=== PATIENT | male | born 1960 | race Caucasian/White ===

== ENCOUNTER → 2016-11-13 | Outpatient (CLI) | payer OTHER ==
[2016-11-13 18:42] LABS: ALT/SGPT 44 U/L (12-78); BLOOD UREA NITROGEN 12 mg/dl (7-18); BUN/CREATININE RATIO 13.7 (10-20); CALCIUM 9.6 mg/dl (8.5-10.1); CARBON DIOXIDE 28 mmol/L (21-32); CHLORIDE 99 mmol/L (98-107); CHOLESTEROL 200 mg/dl (0-200); CREATININE 0.84 mg/dl (0.60-1.40); GLUCOSE 144 mg/dl (70-99); POTASSIUM 3.1 mmol/L (3.5-5.1); SODIUM 134 mmol/L (136-145)
[2016-11-13 18:51] LABS: ALKALINE PHOSPHATASE 72 U/L (45-117); AST/SGOT 20 U/L (15-37); HDL CHOLESTEROL 50 mg/dl; LDL CHOLESTEROL CALCULATED 115 mg/dl; TRIGLYCERIDES 174 mg/dl (0-150); VERY LOW DENSITY LIPOPROT CALC 35 mg/dl
== END | disposition home or self-care (01) ==
LOC: C.LABSPEC 17:43
PROVIDERS: ATTEND Family Medicine
DX: Z00.00 Encounter for general adult medical examination without abnormal findings (principal); I10 Essential (primary) hypertension; E78.2 Mixed hyperlipidemia

== ENCOUNTER 2022-01-24 08:13 | Inpatient (IN) ==
--- NOTE | 2021-12-27 15:37 | PAT Medication Instructions ---
Medication Instructions Date of Service December 27, 2021 Home Medications amlodipine 5 mg tablet 5 mg PO QAM atenolol 100 mg-chlorthalidone 25 mg tablet 1 tab PO QAM duloxetine 30 mg capsule,delayed release 30 mg PO QAM empagliflozin 10 mg tablet (Jardiance) 10 mg PO QAM gabapentin 100 mg capsule 100 mg PO TID metformin 500 mg tablet 500 mg PO BID multivitamin 1 tab PO QAM pravastatin 80 mg tablet 40 mg PO HS DO NOT take the morning of surgery metformin 500 mg tablet 500 mg PO BID multivitamin 1 tab PO QAM Take morning of surgery With a small sip of water, OTHERWISE NOTHING TO EAT OR DRINK AFTER MIDNIGHT: amlodipine 5 mg tablet 5 mg PO QAM atenolol 100 mg-chlorthalidone 25 mg tablet 1 tab PO QAM duloxetine 30 mg capsule,delayed release 30 mg PO QAM gabapentin 100 mg capsule 100 mg PO TID Take evening before surgery gabapentin 100 mg capsule 100 mg PO TID metformin 500 mg tablet 500 mg PO BID pravastatin 80 mg tablet 40 mg PO HS STOP taking 3 days before surgery empagliflozin 10 mg tablet (Jardiance) 10 mg PO QAM Other Notes If you have any questions please call us at [phone] or [phone] or [phone] or [phone]
--- NOTE | 2022-01-04 13:23 | Anesthesiology Consultation ---
Date of Service January 04, 2022 Assessment & Plan (1) Encounter for pre-operative examination: Plan - check BSG am DOS. Chart Review Chart Review: Acceptable Risk for Surgery and Patient NOT seen in Pre Admission Testing Teaching & Discussion Pre-Anesthesia Teaching/Discussion Notes: Instructed NPO after midnight before surgery, except medications with 15 cc of water. Medication instructions provided according to the PAT guidelines. History Surgery Operation Date: 01/24/22 07:45 Proposed Procedures p L4-L5 Decompression and Fusion, Spinal Cord Monitoring - Edil Phipps DO Height/Weight Height: 6 ft 1 in Weight: 120.202 kg Allergies Allergy/AdvReac Type Severity Reaction Status Date / Time No Known Allergies Allergy Verified 12/27/21 12:47 Medications Home Medications Medication Instructions Recorded Confirmed Last Taken amlodipine 5 mg tablet 5 mg PO QAM 12/27/21 12/27/21 Unknown atenolol 100 mg-chlorthalidone 25 1 tab PO QAM 12/27/21 12/27/21 Unknown mg tablet duloxetine 30 mg capsule,delayed 30 mg PO QAM 12/27/21 12/27/21 Unknown release empagliflozin 10 mg tablet 10 mg PO QAM 12/27/21 12/27/21 Unknown (Jardiance) gabapentin 100 mg capsule 100 mg PO TID 12/27/21 12/27/21 Unknown metformin 500 mg tablet 500 mg PO BID 12/27/21 12/27/21 Unknown multivitamin 1 tab PO QAM 12/27/21 12/27/21 Unknown pravastatin 80 mg tablet 40 mg PO HS 12/27/21 12/27/21 Unknown Past Medical History Medical History (Updated 01/04/22 @ 13:32 by Whitney Jolly PA-C) Chronic back pain Diabetes mellitus, type 2 NIDDM GERD (gastroesophageal reflux disease) rare Hyperlipidemia Hypertension controlled, stable per pt Neuropathy in bilat legs Patient denies h/o stroke, seizures, heart attack, heart failure, blood clots or blood transfusions. Exercise / Class Metabolic Activity II 4-5 Yardwork/Stairs/Walk up hill (denies CP or SOB with 1 FOS) Past Family History Family History Other No family history of adverse response to anesthesia Past Surgical History Surgical History History of tooth extraction Past Anesthesia History No Hx of Anesthesia Complications and No Family Hx of Anesthesia Complications History of PONV No Hx of PONV and No Hx of Motion Sickness Social History Smoking Status: Former smoker Do You Dip or Chew Tobacco: No Smoking End Date: quit 7yrs ago Hx Alcohol Use: Yes alcohol intake frequency: holidays/special occasions only Hx Substance Use: No substance use type: does not use Review of Systems Snoring, denies witnessed apneas. Patient denies chest pain, shortness of breath, dyspnea on exertion, fever, chills, cough, wheezing, or palpitations. Physical Exam Vital Signs Vitals BP 145/76 P 52 TEMP 97.5 SP02 97% on RA RESP 18 Physical Full cervical extension range of motion without pain TMD < 3 finger breadths Mallampati Score 2 Dentition: front upper loose teeth; denies chipped teeth, caps/crowns, implants or bridges Lungs: normal respiratory effort. Clear throughout to auscultation, no adventitious breath sounds Cardiac: regular rate and rhythm, no murmurs noted Carotid arteries: negative bruit bilat Lab Results Anesthesia Preop Results Results Anesthesia Widget: WBC 7.64 K/ul (4.8-10.8) 01/04/22 Hgb 15.6 g/dl (14.0-18.0) 01/04/22 Hct 46.1 % (40.1-51.0) 01/04/22 Plt 212 K/uL (130-400) 01/04/22 Na 140 mmol/L (136-145) 01/04/22 K 3.6 mmol/L (3.5-5.1) 01/04/22 Cl 100 mmol/L (98-107) 01/04/22 CO2 33 mmol/L (21-32) H 01/04/22 BUN 12 mg/dl (6-23) 01/04/22 Creat 0.83 mg/dl (0.6-1.4) 01/04/22 Glucose Level 172 mg/dl (70-99(Fasting)) H 01/04/22 PT 10.6 Seconds (9.0-12.0) 01/04/22 PTT 26.5 Seconds (21.0-31.0) 01/04/22 INR 1.0 (0.9-1.1) 01/04/22 HA1c 7.1 % (4.5-5.6) H 01/04/22 Urine Color Yellow 01/04/22 Urine Appearance Clear (Clear) 01/04/22 Urine pH 7.0 (4.5-7.5) 01/04/22 Urine Specific [place] 1.036 (1.000-1.030) H 01/04/22 Urine Protein Negative (Negative) 01/04/22 Urine Glucose (UA) 3+ (Negative) H 01/04/22 Urine Ketones Negative (Negative) 01/04/22 Urine Blood Negative (Negative) 01/04/22 Urine Nitrite Negative (Negative) 01/04/22 Urine Bilirubin Negative (Negative) 01/04/22 Urine Urobilinogen Negative (Negative) 01/04/22 Urine Leukocyte Esterase Negative (Negative) 01/04/22 Blood Type A Positive 01/04/22 Antibody Screen NEGATIVE 01/04/22 Testing Electrocardiogram Date: 01/04/22 Sinus bradycardia, rate 51 bpm Left axis deviation Chest X-Ray Date: 01/04/22 Cardiomediastinal and hilar silhouettes are within normal limits. No pneumothorax, pleural effusion, airspace consolidation or overt pulmonary edema. The bones of the chest appear grossly intact. IMPRESSION: No acute process. COVID-19 Risk Screen Screening Information COVID-19 Screen Date: 01/04/22 Exposure 21 Days Family/Household +COVID Last 21 Days: No Exposure 10 Days Any COVID Exposure Last 10 Days: No Symptoms Last 10 Days Experienced COVID Sx Last 10 Days: No + COVID 0-90 Days COVID + in Last 0-90 Days: No
[~2022-01-24 08:13] MED LIST: ACETAMINOPHEN 500 MG TAB PO SCH; CeleBREX 200 MG CAP PO SCH; GABAPENTIN 600 MG DOSE PO SCH; LR 15ML/HR IV SCH
[2022-01-24] MEDS ORDERED: fentaNYL citrate 100 MCG/2 ML VIAL ONE ×2 (08:48→12:14)
[2022-01-24] MEDS ORDERED: MIDAZOLAM HCL 1 MG/ML 2ML VIAL ONE (08:48)
[2022-01-24] MEDS ORDERED: PROPOFOL IV EMULSION 10 MG/ML 20 ML VIAL IV ONE ×2 (08:48→12:11)
[2022-01-24] MEDS ORDERED: LIDOCAINE 2% MPF LOCAL 5 ML VIAL INFIL ONE (08:48)
[2022-01-24] MEDS ORDERED: ROCURONIUM BROMIDE 10 MG/ML 5 ML VIAL IV ONE (08:48)
[2022-01-24] MEDS ORDERED: ONDANSETRON INJ 2 MG/ML 2 ML VIAL ONE (08:48)
[2022-01-24] MEDS ORDERED: DEXAMETHASONE SOD INJ 4 MG/ML VIAL ONE (08:48)
[2022-01-24] MEDS ORDERED: ePHEDrine sulfate 50 MG/ML AMP IV PRN (09:29)
[2022-01-24] MEDS ORDERED: PROMETHAZINE HCL 12.5 MG in SODIUM CHLORIDE 0.9% 50 ML IV PRN ×2 (09:29→14:28)
[2022-01-24] MEDS ORDERED: NALOXONE HCL 0.4 MG/1 ML VIAL/CARP IV PRN ×2 (09:29→14:28)
[2022-01-24] MEDS ORDERED: ONDANSETRON INJ 2 MG/ML 2 ML VIAL IV PRN ×2 (09:29→14:28)
[2022-01-24] MEDS ORDERED: ATROPINE SULFATE 0.1 MG/ML 10ML SYR IV PRN (09:29)
[2022-01-24] MEDS ORDERED: fentaNYL citrate 100 MCG/2 ML VIAL IV PRN (09:29)
[2022-01-24] MEDS ORDERED: HYDROmorphone INJ 1 MG/ML SYRINGE IV PRN ×2 (09:29→14:28)
[2022-01-24] MEDS ORDERED: FLUMAZENIL 0.1 MG/1 ML 10 ML VIAL IV PRN (09:29)
[2022-01-24] MEDS ORDERED: LABETALOL HCL IV 5 MG/ML 20ML IV PRN (09:29)
--- NOTE | 2022-01-24 09:48 | History & Physical Bridge Note ---
Date of Service January 24, 2022 History & Physical Bridge Note I have examined the patient, reviewed the History & Physical and in the interval since the performance of the History & Physical I have noted the following changes of clinical significance: no changes noted
--- NOTE | 2022-01-24 09:50 | History & Physical Report ---
Date of Service January 24, 2022 Assessment & Plan (1) Neurogenic claudication due to lumbar spinal stenosis: Plan: L4-L5 decompression and fusion possible L5-S1 History of Present Illness Chief Complaint: Back and bilateral leg pain Primary Care Provider: Estevan Zimmer DO This is a 61-year-old male who presents with current persistent back and bilateral leg pain. Failed extensive course of nonoperative care is here for surgical invention. Allergies Allergy/AdvReac Type Severity Reaction Status Date / Time No Known Allergies Allergy Verified 01/24/22 08:43 Home Medications Medication Instructions Recorded Confirmed Type amlodipine 5 mg tablet 5 mg PO QAM 12/27/21 01/24/22 History atenolol 100 mg-chlorthalidone 25 1 tab PO QAM 12/27/21 01/24/22 History mg tablet duloxetine 30 mg capsule,delayed 30 mg PO QAM 12/27/21 01/24/22 History release empagliflozin 10 mg tablet 10 mg PO QAM 12/27/21 01/24/22 History (Jardiance) gabapentin 100 mg capsule 100 mg PO TID 12/27/21 01/24/22 History metformin 500 mg tablet 500 mg PO BID 12/27/21 01/24/22 History multivitamin 1 tab PO QAM 12/27/21 01/24/22 History pravastatin 80 mg tablet 40 mg PO HS 12/27/21 01/24/22 History Past Med/Surg History Medical History (Updated 01/24/22 @ 09:49 by Edil Phipps DO) Chronic back pain Diabetes mellitus, type 2 NIDDM GERD (gastroesophageal reflux disease) rare Hyperlipidemia Hypertension controlled, stable per pt Neuropathy in bilat legs Surgical History History of tooth extraction Family History Other No family history of adverse response to anesthesia Social History Smoking Status: Former smoker Smoking End Date: quit 7yrs ago; Second Hand Exposure: No; Do You Dip or Chew Tobacco: No; Tobacco Cessation Education Requested by Patient: No Hx Alcohol Use: Yes Hx Substance Use: No Preferred Language: Greek Communication Ability: Effective Maori Liaison Adviser Required: No Beliefs That Will Affect Care: None Current Living Situation: Spouse Other Information That Helps Us Care for You: No Feels Safe at Home: Yes Safety Concerns: Feels Safe At This Time Assistive Devices: None Physical Exam Physical Exam: Patient is alert and oriented Heart regular in rhythm Lungs clear Results & Data Results & Data ([facility]) Vital Signs (Past 12 Hours) Vital Signs Temp Pulse Resp BP Pulse Ox O2 Del Method 01/24/22 08:36 36.9 C 52 L 18 149/84 H 97 Room Air
[2022-01-24] MEDS ORDERED: ceFAZolin 330 MG/ML 1 GM VIAL ONE (09:55)
[2022-01-24] MEDS ORDERED: BUPIVACAINE/EPINEPHRINE 0.25% 1:200,000 30 ML VIAL ONE (09:55)
[2022-01-24] MEDS ORDERED: GLYCOPYRROLATE 0.2 MG/ML VIAL ONE ×3 (10:39→11:35)
[2022-01-24] MEDS ORDERED: FLOSEAL HEMOSTATIC MATRIX 10ML TOP ONE (11:06)
[2022-01-24] MEDS ORDERED: NEOSTIGMINE METHYLSULFATE 1 MG/ML 10ML VIAL ONE (11:35)
--- NOTE | 2022-01-24 12:12 | Operative Report ---
Post Operative Report Pre & Post Diagnosis Operation Date: 01/24/22 10:05 Pre-Op Diagnosis: Spinal Stenosis, Lumbar Rgeion with Neurogenic Claudication Post-Op Diagnosis: Spinal Stenosis, Lumbar Rgeion with Neurogenic Claudication I identified the patient and participated in the time-out.: Yes Procedure Operation Date: 01/24/22 10:05 Actual Procedures #1 lumbar impression bilateral medial facetectomies and foraminotomies L3-L4, L4-5 and L5-S1. #2 posterior spinal fusion L4-5 L5-S1. #3 placement posterior instrumentation L4-S1. #4 interbody fusion L4-L5 L5-S1. #5 placement of Spira 15 x 26 mm cage at both L4-L5 and L5-S1. #6 placement locally harvested morselized autograft and posterior gutters. #7 placement I factor combined with V toss in the interbody space and posterior lateral gutters. Surgeon Edil Phipps, DO Franchise Development Manager Rosemary Foote Estimated Blood Loss 150 Findings See Below The patient is 6 foot 1 weighing over 119 kg with a BMI in excess of 34. Patient continues to contribute to significant technical difficulty required deeper retractors and longer instruments in order to perform his procedure. This at least 50% increased operative time. Specimens None Indications This is a 61-year-old male who presents with above-mentioned diagnosis after failed course of nonoperative care is here for surgical intervention. Description of Procedure Patient was met with identified informed consent obtained. Patient was then taken to the operative suite underwent a patient placed in a prone position on Trent table top Dmitri frame. All bony prominences well-padded eyes inspected to ensure no external pressure placed upon them. This point the lumbar spine was prepped and draped in normal sterile fashion. Sharp dissection with assistance of Bovie cautery from down to and exposing the lamina and transverse processes of L4-L5 L5-S1. From caudal cephalad fashion complete laminectomy L5 L4 partial laminectomy L3 was performed with bilateral facetectomies and foraminotomies addressing severe spinal stenosis. Please note I did extend the fusion L5-S1 as well as A discussion on the left with severe compression of the traversing S1 nerve roots. This extended out into the neuroforamen requiring total facetectomy and subsequent creation of iatrogenic instability is necessitating fusion. After decompression pedicle schedule placed in L4-5 S1 with the assistance of fluoroscopy appropriate sized corrine placed. By way the tr ansforaminal approach on the left complete discectomy L5-S1 was performed endplates curetted to subcortical bleeding bone and a 15 x 26 mm spiral cage with I factor tapped in position. Then proceeded to L4-L5 and again by way of a transforaminal approach and left complete discectomy was performed endplates curetted to subcortical and bone and again a 15 x 26 mm cage filled with I factor tapped in position. The rods then compressed locked into final position bilaterally. The transverse processes of L for L5 and S1 levels burred to subcortical bleeding bone bilaterally. I factor model V testing locally harvested morselized autograft was then placed in the posterior gutters. 15 round SIOBHAN drain inserted. The incision was then closed with 1 Vicryl the fascia 2-0 Vicryl subcutaneously and 4 Monocryl for final skin closure. Steri-Strips dressings placed. Patient waken taken to PACU in stable condition. Please note spinal cord monitoring was utilized at the procedure no changes noted. Lastly Rosemary Foote was present at the entire surgery and while the patient positioning complex portions of the surgery and final skin closure. I attest to the content of the Intraoperative Record and any orders documented therein. Any exceptions are noted below.
--- NOTE | 2022-01-24 13:04 | Fluoroscopy Report ---
FL lumbar spine 2-3V CLINICAL HISTORY: L4-L5 Decompression/Fusion TECHNIQUE: 2 views were obtained with the C-arm in the OR with the above procedure. Total fluoroscopy time was 24.9 seconds. Radiation dose was 23.14 mGy. Comparison: Comparison is made to MRI lumbar spine 06/23/2021 FINDINGS/IMPRESSION: Intraoperative images were obtained of L4-S1 decompression and fusion. Please correlate with intraoperative fluoroscopy and operative report. ACT 112: Negative or not required by law. Electronically signed by: Jaya Sharp M.D. 01/24/2022 1:03 PM
--- NOTE | 2022-01-24 13:10 | Anesthesiology Progress Note ---
Date of Service January 24, 2022 Anesthesia Post Procedure Vital Signs Vital Signs: Temp Pulse Pulse Resp BP Pulse Ox O2 Del Method 01/24/22 12:55 68 12 120/69 94 Nasal Cannula 01/24/22 12:45 65 12 131/67 95 Oxymask 01/24/22 12:35 71 12 126/67 96 Oxymask 01/24/22 12:26 36.6 C 65 12 142/72 H 96 Oxymask 01/24/22 08:36 36.9 C 52 L 18 149/84 H 97 Room Air O2 Flow Rate 01/24/22 12:55 3 01/24/22 12:45 10 01/24/22 12:35 10 01/24/22 12:26 10 01/24/22 08:36 Transfer of Care Handoff Completed per policy Notes Mental Status: alert / awake / arousable Patient Amnestic to Procedure: Yes Nausea / Vomiting: adequately controlled Pain: adequately controlled Airway Patency, RR, SpO2: stable & adequate BP & HR: stable & adequate Hydration State: stable & adequate Anesthetic Complications: no major complications apparent
[2022-01-24] MEDS ORDERED: ACETAMINOPHEN 1,000 MG/100 ML VIAL IV PRN (14:28)
[2022-01-24] MEDS ORDERED: LORazepam 0.5 MG TAB PO PRN (14:28)
[2022-01-24] MEDS ORDERED: ONDANSETRON 4 MG OD TAB PO PRN (14:28)
[2022-01-24] MEDS ORDERED: FAMOTIDINE 20 MG TAB PO PRN (14:28)
[2022-01-24] MEDS ORDERED: ALUMINUM/MAGNESIUM SUSP 30 ML UDC PO PRN (14:28)
[2022-01-24] MEDS ORDERED: HYDROmorphone INJ 0.5 MG/0.5 ML SYR IV PRN (14:28)
[2022-01-24] MEDS ORDERED: bisacodyL 10 MG SUPP PR PRN (14:28)
[2022-01-24] MEDS ORDERED: LORazepam 0.5 MG in SYRINGE 0.25 ML IV PRN (14:28)
[2022-01-24] MEDS ORDERED: DO NOT ADMINISTER PNEUMOCOCCAL VACCINE PRN (14:28)
[2022-01-24] MEDS ORDERED: DO NOT ADMINISTER FLU VACCINE PRN (14:28)
[2022-01-24] MEDS ORDERED: hydrOXYzine HCl 25 MG TAB PO PRN (14:28)
[2022-01-24] MEDS ORDERED: diphenhydrAMINE Capsule 25 MG CAP PO PRN (14:28)
[2022-01-24] MEDS ORDERED: SOD PHOSPHATE/SOD BIPHOSPHATE ENEMA 132 ML BTL PR PRN (14:28)
[2022-01-24] MEDS ORDERED: PHARMACY GLYCEMIC MGMT CONSULT PRN (14:28)
[2022-01-24] MEDS ORDERED: MAGNESIUM HYDROXIDE SUSP 30 ML UDC PO PRN (14:28)
[2022-01-24] MEDS ORDERED: METOCLOPRAMIDE HCL INJ 5 MG/ML 2 ML VIAL IV PRN (14:28)
[2022-01-24] MEDS ORDERED: GLUCOSE 10 TAB/TUBE PO PRN (15:00)
[2022-01-24] MEDS ORDERED: CARBOHYDRATES FOR HYPOGLYCEMIA PO PRN (15:00)
[2022-01-24] MEDS ORDERED: DEXTROSE 50% 50 ML SYRINGE IV PRN (15:00)
[2022-01-24] MEDS ORDERED: LANTUS PER UNIT CHARGE SQ SCH (15:00)
[2022-01-24] MEDS ORDERED: GLUCAGON FOR INJ 1 MG VIAL IM PRN (15:00)
[2022-01-24] MEDS ORDERED: GLUCOSE 40% GEL 15 GM TUBE PO PRN (15:00)
--- NOTE | 2022-01-24 15:00 | Pharmacy Report ---
Pharmacy Glycemic Short Note 2 - Date of Service January 24, 2022 - Glycemic Short BSG Results (Last 24 hours): 01/24/22 01/24/22 08:46 12:29 POC Glucose 134 H 149 H OUTPATIENT ANTIDIABETIC REGIMEN: * Metformin 500 mg PO BIDM * Jardiance 10 mg PO AM * HbA1c: 7.1% (01/04/22) ASSESSMENT: * 61 yo M admitted post-operatively following spinal surgery this morning with Dr. Phipps. Pharmacy has been consulted to assist with inpatient glycemic management. Patient is a type 2 diabetic on oral antidiabetic medications at home. * Received 4 mg of IV dexamethasone intra-operatively. Ordered 6 mg of IV dexamethasone daily x 3 days starting tomorrow morning. Ordered and tolerating a type 2 diabetic diet. * Pre-operative BSG 134 mg/dL. Post-operative BSG 149 mg/dL. Start Lantus based upon 0.3 units/kg (adjusted body weight) to cover steroids. Novolog started ACHS based on weight/stress of 3. Holding oral agents for now. PLAN FOR INPATIENT GLYCEMIC CONTROL: * Hold outpatient oral diabetes medications * Basal insulin * Lantus 30 units SC daily starting now x 4 doses (give with dexamethasone - hold if dexamethasone held/discontinued) * Bolus insulin * NovoLog per scale ACHS or Q6hrs while NPO * Goal Range: Low 110 mg/dL - High 140 mg/dL * Correction Factor: 15 mg/dL/unit * Nutritional / Prandial insulin per carb ratio of 1 unit per 5 grams CHO consumed
[2022-01-24] MEDS: traMADol HCL 50 MG TABLET PO PRN (15:33)
[2022-01-24] MEDS: GABAPENTIN 100 MG CAP PO SCH ×2 (15:39→20:37)
[2022-01-24] MEDS: SODIUM CHLORIDE 0.9% 1000ML 1,000 ML IV SCH ×2 (15:42→22:17)
--- NOTE | 2022-01-24 16:49 | Hospitalist Consultation ---
Date of Consultation January 24, 2022 Assessment & Plan (1) Neurogenic claudication due to lumbar spinal stenosis: POD#0 L4-L5, L5-S1 decompression and fusion by Dr. Phipps Activity and wound care orders as per ortho Pain control with bowel regimen PT/OT Monitor H/H for acute blood loss anemia and transfuse blood products PRN EBL 150 cc (2) Diabetes mellitus, type 2: Hgb A1c 7.1 12/2021 Glycemic pharmacy following (3) Hypertension: BP controlled, continue atenolol, chlorthalidone, amlodipine (4) Hyperlipidemia: Continue statin DVT prophylaxis TEDs/SCDs as per spine Ortho Thank you for this consultation. We will follow the patient with you during their hospital stay. You can reach a member of the [facility] Hospitalist Team 28/[address] [facility] Hospitalist role in [place] Text. Supervising Physician Co-Signing Physician Notes Pt is a 61 y/o M with hx of DMII, HTN, HLD, Lumbar spinal stenosis admitted for L4-S1 decompression and fusion. PE: NAD, obese pt Lungs: CTA, no wheezing or crackles Cardiac: Normal S1/S2, no murmur Abd: ND, NT, soft MSK: able to move b/l toes Psych: AAOx3, normal affect A/P: S/P L4-S1 Decompression: -POD # 0 - VSS - Pain management per ortho - PT/OT - Trend CBC and BMP DMII: -will hold oral meds -ISS Other chronic conditions: Plan as above Agree with A/P by ANGELINE Mckeon History of Present Illness Reason for Consultation: Postop medical management Requesting Physician: Dr. Phipps Attending Physician: Edil Phipps DO History of Present Illness 61-year-old male with PMH HTN, DM type II, dyslipidemia, and other problems listed below who is s/p L4-L5, L5-S1 decompression and fusion by Dr. Phipps. Postoperatively, the patient is doing well. He reports his pain is well controlled. He denies numbness, tingling, weakness to lower extremities. No chest pain or shortness of breath. Denies abdominal pain or nausea. No li ghtheadedness or dizziness. Meyer catheter is in place draining clear yellow urine. Allergies Allergy/AdvReac Type Severity Reaction Status Date / Time No Known Allergies Allergy Verified 01/24/22 08:43 Home Medications Medication Instructions Recorded Confirmed Type amlodipine 5 mg tablet 5 mg PO QAM 12/27/21 01/24/22 History atenolol 100 mg-chlorthalidone 25 1 tab PO QAM 12/27/21 01/24/22 History mg tablet duloxetine 30 mg capsule,delayed 30 mg PO QAM 12/27/21 01/24/22 History release empagliflozin 10 mg tablet 10 mg PO QAM 12/27/21 01/24/22 History (Jardiance) gabapentin 100 mg capsule 100 mg PO TID 12/27/21 01/24/22 History metformin 500 mg tablet 500 mg PO BID 12/27/21 01/24/22 History multivitamin 1 tab PO QAM 12/27/21 01/24/22 History pravastatin 80 mg tablet 40 mg PO HS 12/27/21 01/24/22 History Patient History Medical History Chronic back pain Diabetes mellitus, type 2 NIDDM GERD (gastroesophageal reflux disease) rare Hyperlipidemia Hypertension controlled, stable per pt Neuropathy in bilat legs Surgical History History of tooth extraction Family History Mother Diabetes Social History Smoking Status: Former smoker Smoking End Date: quit 7yrs ago; Second Hand Exposure: No; Do You Dip or Chew Tobacco: No; Tobacco Cessation Education Requested by Patient: No Hx Alcohol Use: Yes Hx Substance Use: No Preferred Language: Jordanian Communication Ability: Effective Machine Maintenance Repairer Required: No Beliefs That Will Affect Care: None Current Living Situation: Spouse Other Information That Helps Us Care for You: No Feels Safe at Home: Yes Safety Concerns: Feels Safe At This Time Assistive Devices: None Review of Systems Review of Systems: ROS per HPI, all other systems reviewed and negative Physical Exam Constitutional: WD/WN, vitals as above Eyes: PERRL, conjunctivae normal, anicteric sclerae ENMT: external ear and nose normal, oropharynx normal Respiratory: normal respiratory effort, lungs clear to auscultation Cardiovascular: Rate/Rhythm: regular rate and regular rhythm Vessels: normal peripheral pulses Extremities: no edema Gastrointestinal (Abdomen): normal bowel sounds, soft, nontender, no hepatosplenomegaly Musculoskeletal: S/p back surgery, pedal pushes and pulls strong bilaterally, drain in place draining bloody drainage Skin: no rashes, warm and dry Neurologic: PERRL, EOMI, accommodation nl, no face palsy, no dysarthria Psychiatric: A+Ox3, euthymic affect Results & Data Results & Data ([facility]) Vital Signs (Past 12 Hours) Vital Signs Temp Pulse Pulse Resp BP Pulse Ox O2 Del Method 01/24/22 16:27 36.5 C 57 L 18 155/75 H 95 Nasal Cannula 01/24/22 15:32 36.4 C L 68 18 144/79 H 94 Room Air 01/24/22 14:53 36.8 C 66 16 122/66 94 Nasal Cannula 01/24/22 14:28 36.8 C 60 16 133/69 90 Room Air 01/24/22 14:00 76 15 130/71 93 Nasal Cannula 01/24/22 13:30 64 13 134/62 94 Nasal Cannula 01/24/22 13:15 36.2 C L 76 12 115/72 94 Nasal Cannula 01/24/22 13:05 61 13 127/70 95 Nasal Cannula 01/24/22 12:55 68 12 120/69 94 Nasal Cannula 01/24/22 12:45 65 12 131/67 95 Oxymask 01/24/22 12:35 71 12 126/67 96 Oxymask 01/24/22 12:26 36.6 C 65 12 142/72 H 96 Oxymask 01/24/22 08:36 36.9 C 52 L 18 149/84 H 97 Room Air O2 Flow Rate 01/24/22 16:27 2 01/24/22 15:32 01/24/22 14:53 2 01/24/22 14:28 01/24/22 14:00 2 01/24/22 13:30 3 01/24/22 13:15 3 01/24/22 13:05 3 01/24/22 12:55 3 01/24/22 12:45 10 01/24/22 12:35 10 01/24/22 12:26 10 01/24/22 08:36
[2022-01-24] MEDS: ceFAZolin 2000MG 2,000 MG/15 ML SYR IV SCH (18:10)
[2022-01-24] MEDS: INSULIN ASPART PER UNIT SC SCH ×2 (18:10→20:34)
[2022-01-24] MEDS: metFORMIN HCL ER 500 MG TABCR PO SCH (18:20)
[2022-01-24] MEDS: DOCUSATE SODIUM/SENNA 50/8.6MG TAB PO SCH (20:37)
[2022-01-24] MEDS: PRAVASTATIN SOD 40 MG TAB PO SCH (20:37)
[2022-01-24] MEDS: ACETAMINOPHEN 500 MG TAB PO PRN (20:41)
[2022-01-25] MEDS: ceFAZolin 2000MG 2,000 MG/15 ML SYR IV SCH (01:54)
[2022-01-25] MEDS: traMADol HCL 50 MG TABLET PO PRN (01:54)
[2022-01-25] MEDS: oxyCODONE HCL IR 5 MG TAB (IMMEDIATE RELEASE) PO PRN ×3 (04:47→13:07)
[2022-01-25] MEDS: SODIUM CHLORIDE 0.9% 1000ML 1,000 ML IV SCH (05:02)
[2022-01-25] MEDS: POLYETHYLENE (MIRALAX) 17 GM PACK PO SCH ×4 (05:52→23:57)
[2022-01-25 07:06] LABS: Basophils # (auto) 0.01 K/uL (0-0.2); Basophils % (auto) 0.1 %; Eosinophils # (auto) 0.03 K/uL (0-0.50); Eosinophils % (auto) 0.2 %; Hematocrit (blood only) 40.4 % (40.1-51.0); Hemoglobin 13.3 g/dl (14.0-18.0); Immature Granulocytes # (auto) 0.05 K/uL (0.00-0.02); Immature Granulocytes % (auto) 0.4 %; Lymphocytes # (auto) 1.18 K/uL (1.2-3.4); Lymphocytes % (auto) 9.2 %; Mean Corpuscular Hemoglobin 29.8 pg (25.0-34.0); Mean Corpuscular Hgb Conc 32.9 g/dL (32.0-36.0); Mean Corpuscular Volume 90.6 fL (80.0-100.0); Mean Platelet Volume 10.5 fL (9.4-12.4); Monocytes # (auto) 1.08 K/uL (0.24-0.82); Monocytes % (auto) 8.4 %; Neutrophils # (auto) 10.46 K/uL (1.4-6.5); Neutrophils % (auto) 81.7 %; Platelet Count 182 K/uL (130-400); RDW Coefficient of Variation 13.1 % (11.5-14.5); RDW Standard Deviation 43.1 fL (36.4-46.3); Red Blood Count 4.46 M/uL (4.63-6.08); White Blood Count 12.81 K/ul (4.8-10.8)
[2022-01-25 07:26] LABS: Calcium 8.3 mg/dl (8.5-10.1); Creatinine Clr Calc Pharmacy 129.4 ml/min; Est GFR (African American) 110.8 ml/min; Est GFR (Non-African American) 95.6 ml/min; Potassium 3.7 mmol/L (3.5-5.1)
--- NOTE | 2022-01-25 08:33 | Orthopedic Progress Note ---
Date of Service January 25, 2022 Assessment & Plan (1) Neurogenic claudication due to lumbar spinal stenosis: Plan: Domenic is postop day 2 status post TLIF L4-5, L5-S1. We will start physical therapy today. Ambulate hallways. DVT prophylaxis in the form teds and SCDs. Continue with aggressive bowel regimen. Maintain SIOBHAN drain. Continue with pain control. Anticipate discharge home within the next 24 to 48 hours. Admission and Anticipated Discharge Date Admission Date: January 24, 2022 Lacey Sheth is postoperative day 1 status post TLIF L4-5, L5-S1. He had an uneventful evening. Leg pain has resolved. Back pain is controlled. SIOBHAN drain output last shift was 100 cc. H&H is morning are 13.3 and 40.4 respectively. Review of Systems Review of Systems: All systems reviewed & are unremarkable except as noted in HPI & below Physical Exam Physical Exam: He is lying in bed in no acute distress Alert and oriented x3 Lumbar dressing is clean dry intact with functioning SIOBHAN drain Strength intact bilateral lower extremity Calf soft nontender bilateral lower extremities Results & Data ([facility]) Vital Signs (Past 12 Hours) Vital Signs Temp Pulse Resp BP BP Pulse Ox O2 Del Method 01/25/22 07:28 36.6 C 67 20 154/71 H 94 Room Air 01/25/22 03:33 36.6 C 63 18 114/69 94 Room Air 01/24/22 22:27 36.9 C 64 20 128/66 93 Room Air
[2022-01-25] MEDS ORDERED: ATENOLOL CHLORTHALIDONE PO SCH (09:00)
[2022-01-25] MEDS ORDERED: EMPAGLIFLOZIN 10 MG TAB PO SCH (09:00)
[2022-01-25] MEDS: ACETAMINOPHEN 500 MG TAB PO PRN ×2 (09:06→17:01)
[2022-01-25] MEDS: MULTIVITAMIN TAB PO SCH (09:07)
[2022-01-25] MEDS: ATENOLOL 50 MG TABLET PO SCH (09:08)
[2022-01-25] MEDS: DULoxetine HCL 30 MG CAP PO SCH (09:09)
[2022-01-25] MEDS: CHLORTHALIDONE 25 MG TAB PO SCH (09:10)
[2022-01-25] MEDS: GABAPENTIN 100 MG CAP PO SCH ×3 (09:10→20:09)
[2022-01-25] MEDS: amLODIPine BESYLATE 5 MG TAB PO SCH (09:10)
[2022-01-25] MEDS: INSULIN ASPART PER UNIT SC SCH ×4 (09:18→21:04)
[2022-01-25] MEDS: dexAMETHasone 6 MG in SYRINGE 0 ML IV SCH (09:20)
[2022-01-25] MEDS: metFORMIN HCL ER 500 MG TABCR PO SCH ×2 (10:54→17:02)
--- NOTE | 2022-01-25 14:30 | Hospitalist Progress Note ---
Date of Service January 25, 2022 Assessment & Plan (1) Neurogenic claudication due to lumbar spinal stenosis: Plan: POD#1 L4-L5, L5-S1 decompression and fusion by Dr. Phipps Activity and wound care orders as per ortho Pain control with bowel regimen PT/OT Monitor H/H for acute blood loss anemia and transfuse blood products PRN EBL 150 cc Acute blood loss anemia Hemoglobin dropped to 13.3 from 15.6 and is contributed by minimal blood loss, surgery itself and dilution due to IV fluid Will monitor CBC and electrolytes Remains medically stable (2) Diabetes mellitus, type 2: Plan: Hgb A1c 7.1 12/2021 Glycemic pharmacy following (3) Hypertension: Plan: BP controlled, continue atenolol, chlorthalidone, amlodipine (4) Hyperlipidemia: Plan: Continue statin DVT prophylaxis TEDs/SCDs as per spine Ortho Thank you for this consultation. We will follow the patient with you during their hospital stay. You can reach a member of the [facility]ist Team 28/08 via the [facility] Hospitalist role in [employer]. Admission and Anticipated Discharge Date Admission Date: January 24, 2022 Subjective 01/25/2022 The patient was seen and examined in medical floor He has been stable following lumbar surgery Denies any other significant symptoms except back pain He has been ambulating in the room Review of Systems Review of Systems: All systems reviewed and are unremarkable except as noted below Physical Exam Physical Exam: Standing at the bedside without any acute discomfort Constitutional: well developed, well nourished and + obese; not ill appearing Eyes: PERRL, conjunctivae normal, anicteric sclerae ENMT: external ear and nose normal, oropharynx normal Neck: trachea midline, no thyromegaly Respiratory: no respiratory distress Auscultation: lungs clear to auscultation bilaterally Cardiovascular: Rate/Rhythm: regular rate and regular rhythm; not tachycardic Heart Sounds: normal S1 and normal S2; no murmur Extremities: no edema Gastrointestinal (Abdomen): Inspection/Auscultation: normal bowel sounds; abdomen not distended Percussion/Palpation: abdomen soft; abdomen nontender Musculoskeletal: Minimal back pain but no acute arthritis in any other joints Neurologic: Alert, awake and oriented x3. No focal sensory or motor deficit appreciated Psychiatric: A+Ox3, euthymic affect Lymphatic: no cervical or axillary lymphadenopathy Results & Data Results & Data ([place]) Vital Signs (Past 12 Hours) Vital Signs Temp Pulse Resp BP BP Pulse Ox O2 Del Method 01/25/22 07:28 36.6 C 67 20 154/71 H 94 Room Air 01/25/22 03:33 36.6 C 63 18 114/69 94 Room Air Laboratory Results Short CBC 01/25/22 Range/Units 06:20 WBC 12.81 H (4.8-10.8) K/ul Hgb 13.3 L (14.0-18.0) g/dl Hct 40.4 (40.1-51.0) % Plt Count 182 (130-400) K/uL BMP 01/25/22 06:20 Sodium 137 Potassium 3.7 Chloride 99 Carbon Dioxide 31 BUN 15 Creatinine 0.79 Glucose 144 H Calcium 8.3 L Medications Administered Current Inpatient Medications Acetaminophen (Acetaminophen 500 Mg Tab) 1,000 mg PO Q8H PRN PRN Reason: MILD Pain Scale 1,2,3 & Pre PT Stop: 02/23/22 14:27 Last Admin: 01/25/22 09:06 Dose: 1,000 mg Al Hydrox/Mg Hydrox/Simethicone (Aluminum/Magnesium Susp 30 Ml Udc) 30 ml PO Q6H PRN PRN Reason: Dyspepsia Stop: 02/23/22 14:27 Amlodipine Besylate (Amlodipine Besylate 5 Mg Tab) 5 mg PO [facility] Stop: 02/24/22 08:59 Last Admin: 01/25/22 09:10 Dose: 5 mg Atenolol (Atenolol 50 Mg Tablet) 100 mg PO [facility] Stop: 02/24/22 08:59 Last Admin: 01/25/22 09:08 Dose: 100 mg Bisacodyl (Bisacodyl 10 Mg Supp) [address] DAILY PRN PRN Reason: Constipation Stop: 02/23/22 14:27 Chlorthalidone (Ch[facility]orthalidone 25 Mg Tab) [facility] Stop: 02/24/22 08:59 Last Admin: 01/25/22 09:10 Dose: 25 mg Dextrose (Dextrose 50% 50 Ml Syringe) 25 - 50 ml IV UD PRN; Protocol PRN Reason: Hypoglycemia Protocol Stop: 02/23/22 14:59 Diphenhydramine HCl (Diphenhydramine Capsule 25 Mg Cap) 25 mg PO Q6H PRN PRN Reason: Allergic Rhinitis/Insomnia Stop: 02/23/22 14:27 Duloxetine HCl (Duloxetine Hcl 30 Mg Cap) 30 mg PO QAM [facility] Stop: 02/24/22 08:59 Last Admin: 01/25/22 09:09 Dose: 30 mg Famotidine (Famotidine 20 Mg Tab) 20 mg PO Q12H PRN PRN Reason: Dyspepsia Stop: 02/23/22 14:27 Gabapentin (Gabapentin 100 Mg Cap) 100 mg PO TID [facility] Stop: 02/23/22 14:44 Last Admin: 01/25/22 09:10 Dose: 100 mg Glucagon (Glucagon For Inj 1 Mg Vial) 1 mg IM UD PRN; Protocol PRN Reason: Hypoglycemia Protocol Stop: 02/23/22 14:59 Glucose (Glucose 40% Gel 15 Gm Tube) 15 - 30 gm PO UD PRN; Protocol PRN Reason: Hypoglycemia Protocol Stop: 02/23/22 14:59 Glucose (Glucose 10 Tab/Tube) 4 - 8 tab PO UD PRN; Protocol PRN Reason: Hypoglycemia Protocol Stop: 02/23/22 14:59 Hydromorphone HCl (Hydromorphone Inj 0.5 Mg/0.5 Ml Syr) 0.5 mg IV Q3H PRN PRN Reason: MODERATE Pain (Scale 4,5,6) & Pre PT Stop: 02/07/22 14:27 Hydromorphone HCl (Hydromorphone Inj 1 Mg/Ml Syringe) 1 mg IV Q3H PRN PRN Reason: SEVERE Pain (Scale 7,8,9,10) Stop: 02/07/22 14:27 Hydroxyzine HCl (Hydroxyzine Hcl 25 Mg Tab) 25 mg PO Q8H PRN PRN Reason: Anxiety Stop: 02/23/22 14:27 Promethazine HCl 12.5 mg/ (Sodium Chloride) 50.5 mls @ 202 mls/hr IV Q6H PRN PRN Reason: Nausea &/or Vomiting Stop: 02/23/22 14:27 Acetaminophen (Ofirmev) 1,000 mg in 100 mls @ 400 mls/hr IV Q8H PRN PRN Reason: Pain Rating 1-3 & Pre PT Stop: 01/25/22 14:30 Lorazepam 0.5 mg/ Syringe 0.5 mls @ 2 mls/min IV Q8H PRN PRN Reason: Sedation/Anxiety Stop: 02/23/22 14:27 Dexamethasone 6 mg/ Syringe 1.5 mls @ 1 mls/min IV DAILY [facility] Stop: 01/27/22 09:02 Last Admin: 01/25/22 09:20 Dose: 1 mls/min Influenza Virus Vaccine Quadrival (Do Not Administer Flu Vaccine) 1 each N/A PRN PRN PRN Reason: Notification Stop: 02/23/22 14:27 Insulin Aspart (Insulin Aspart Per Unit) 0 units SC ACHS [facility]; Protocol Stop: 02/23/22 16:29 Last Admin: 01/25/22 13:04 Dose: 9 units Lorazepam (Lorazepam 0.5 Mg Tab) 0.5 mg PO Q8H PRN PRN Reason: Sedation/Anxiety Stop: 02/23/22 14:27 Magnesium Hydroxide (Magnesium Hydroxide Susp 30 Ml Udc) 30 ml PO Q24H PRN PRN Reason: Constipation Stop: 02/23/22 14:27 Metformin HCl (Metformin Hcl Er 500 Mg Tabcr) 500 mg PO BIDM [facility]; Protocol Stop: 02/23/22 16:59 Last Admin: 01/25/22 10:54 Dose: 500 mg Metoclopramide HCl (Metoclopramide Hcl Inj 5 Mg/Ml 2 Ml Vial) 10 mg IV Q6H PRN PRN Reason: Nausea &/or Vomiting Stop: 02/23/22 14:27 Miscellaneous (Carbohydrates For Hypoglycemia ) 15 - 30 gm PO UD PRN PRN Reason: Hypoglycemia Treatment Stop: 02/23/22 14:59 Miscellaneous Information (Pharmacy Glycemic Mgmt Consult) 1 each N/A UD PRN PRN Reason: Consult Stop: 02/23/22 14:27 Multivitamins (Multivitamin Tab) 1 tab PO QAM [facility] Stop: 02/24/22 08:59 Last Admin: 01/25/22 09:07 Dose: 1 tab Naloxone HCl (Naloxone Hcl 0.4 Mg/1 Ml Vial/Carp) 0.1 mg IV Q5M PRN PRN Reason: Oversedation/Resp depression Stop: 02/23/22 14:27 Ondansetron HCl (Ondansetron Inj 2 Mg/Ml 2 Ml Vial) 4 mg IV Q6H PRN PRN Reason: Nausea &/or Vomiting Stop: 02/23/22 14:27 Ondansetron HCl (Ondansetron 4 Mg Od Tab) 4 mg PO Q6H PRN PRN Reason: Nausea Stop: 02/23/22 14:27 Oxycodone HCl (Oxycodone Hcl Ir 5 Mg Tab (Immediate Release)) 5 - 10 mg PO Q4H PRN PRN Reason: Pain & Pre PT Stop: 02/07/22 14:27 Last Admin: 01/25/22 13:07 Dose: 5 mg Pneumococcal Polyvalent Vaccine (Do Not Administer Pneumococcal Vaccine) 1 each N/A PRN PRN PRN Reason: Notification Stop: 02/23/22 14:27 Polyethylene Glycol (Polyethylene (Miralax) 17 Gm Pack) 17 gm PO Q6 [facility]AH[facility] Stop: 02/24/22 05:59 Last Admin: 01/25/22 12:50 Dose: 17 gm Pravastatin Sodium (Pravastatin Sod 40 Mg Tab) 40 mg PO HS SARAHY Stop: 02/23/22 20:59 Last Admin: 01/24/22 20:37 Dose: 40 mg Senna/Docusate Sodium (Docusate Sodium/Senna 50/8.6mg Tab) 2 tab PO HS SAARHY Stop: 02/23/22 20:59 Last Admin: 01/24/22 20:37 Dose: 2 tab Sodium Biphosphate/Sodium Phosphate (Sod Phosphate/Sod Biphosphate Enema 132 Ml Btl) [address] ONE PRN PRN Reason: Constipation Stop: 02/23/22 14:27 Tramadol HCl (Tramadol Hcl 50 Mg Tablet) 50 - 100 mg PO Q4H PRN PRN Reason: Moderate-Severe pain & Pre PT Stop: 02/23/22 14:27 Last Admin: 01/25/22 01:54 Dose: 50 mg
--- NOTE | 2022-01-25 15:24 | Pharmacy Report ---
Pharmacy Glycemic Short Note 2 - Date of Service January 25, 2022 - Glycemic Short BSG Results (Last 24 hours): 01/24/22 01/24/22 01/25/22 16:46 20:26 06:20 Glucose 144 H POC Glucose 157 H 172 H 01/25/22 01/25/22 07:55 12:00 Glucose POC Glucose 136 H 160 H OUTPATIENT ANTIDIABETIC REGIMEN: * Metformin 500 mg PO BIDM * Jardiance 10 mg PO AM * HbA1c: 7.1% (01/04/22) ASSESSMENT: 01/25: * Patient was refusing Lantus yesterday, so home dose of Metformin 500 mg BID started last night. * Fasting BSG = 136 mg/dl today. Pre-lunch BSG trended up to 160 mg/dl which is near goal. * Since patient was refusing basal insulin yesterday, did not order any basal today. Novolog parameters continued the same as yesterday Background 01/24/22: * 61 yo M admitted post-operatively following spinal surgery this morning with Dr. Phipps. Pharmacy has been consulted to assist with inpatient glycemic management. Patient is a type 2 diabetic on oral antidiabetic medications at home. * Received 4 mg of IV dexamethasone intra-operatively. Ordered 6 mg of IV dexamethasone daily x 3 days starting tomorrow morning. Ordered and tolerating a type 2 diabetic diet. * Pre-operative BSG 134 mg/dL. Post-operative BSG 149 mg/dL. Start Lantus based upon 0.3 units/kg (adjusted body weight) to cover steroids. Novolog started ACHS based on weight/stress of 3. Holding oral agents for now. PLAN FOR INPATIENT GLYCEMIC CONTROL: * Metformin 500 mg PO BID (home dose) * Basal insulin * Patient refusing * Bolus insulin * NovoLog per scale ACHS or Q6hrs while NPO * Goal Range: Low 110 mg/dL - High 140 mg/dL * Correction Factor: 15 mg/dL/unit * Nutritional / Prandial insulin per carb ratio of 1 unit per 5 grams CHO consumed
[2022-01-25] MEDS: PRAVASTATIN SOD 40 MG TAB PO SCH (20:09)
[2022-01-25] MEDS: DOCUSATE SODIUM/SENNA 50/8.6MG TAB PO SCH (20:09)
[2022-01-26] MEDS: oxyCODONE HCL IR 5 MG TAB (IMMEDIATE RELEASE) PO PRN (05:45)
[2022-01-26] MEDS: ACETAMINOPHEN 500 MG TAB PO PRN ×2 (05:45→13:02)
[2022-01-26] MEDS: POLYETHYLENE (MIRALAX) 17 GM PACK PO SCH ×2 (05:46→13:02)
[2022-01-26 08:03] LABS: Basophils # (auto) 0.03 K/uL (0-0.2); Basophils % (auto) 0.2 %; Eosinophils # (auto) 0.03 K/uL (0-0.50); Eosinophils % (auto) 0.2 %; Hematocrit (blood only) 39.5 % (40.1-51.0); Hemoglobin 13.3 g/dl (14.0-18.0); Immature Granulocytes % (auto) 1.5 %; Lymphocytes # (auto) 1.39 K/uL (1.2-3.4); Lymphocytes % (auto) 10.5 %; Mean Corpuscular Hemoglobin 29.9 pg (25.0-34.0); Mean Corpuscular Hgb Conc 33.7 g/dL (32.0-36.0); Mean Corpuscular Volume 88.8 fL (80.0-100.0); Mean Platelet Volume 10.4 fL (9.4-12.4); Monocytes # (auto) 1.16 K/uL (0.24-0.82); Monocytes % (auto) 8.7 %; Neutrophils # (auto) 10.49 K/uL (1.4-6.5); Neutrophils % (auto) 78.9 %; Platelet Count 194 K/uL (130-400); RDW Coefficient of Variation 13.1 % (11.5-14.5); RDW Standard Deviation 42.7 fL (36.4-46.3); Red Blood Count 4.45 M/uL (4.63-6.08)
[2022-01-26] MEDS: metFORMIN HCL ER 500 MG TABCR PO SCH (09:33)
[2022-01-26] MEDS: amLODIPine BESYLATE 5 MG TAB PO SCH (09:35)
[2022-01-26] MEDS: MULTIVITAMIN TAB PO SCH (09:36)
[2022-01-26] MEDS: CHLORTHALIDONE 25 MG TAB PO SCH (09:36)
[2022-01-26] MEDS: ATENOLOL 50 MG TABLET PO SCH (09:36)
[2022-01-26] MEDS: DULoxetine HCL 30 MG CAP PO SCH (09:36)
[2022-01-26] MEDS: GABAPENTIN 100 MG CAP PO SCH ×2 (09:36→13:02)
[2022-01-26] MEDS: dexAMETHasone 6 MG in SYRINGE 0 ML IV SCH (09:37)
[2022-01-26] MEDS: INSULIN ASPART PER UNIT SC SCH ×2 (09:43→13:03)
--- NOTE | 2022-01-26 10:14 | Orthopedic Progress Note ---
Date of Service January 26, 2022 Assessment & Plan (1) Neurogenic claudication due to lumbar spinal stenosis: Plan: At this time we will continue physical therapy anticipate discharge today or tomorrow if he is able to get a ride home. Admission and Anticipated Discharge Date Admission Date: January 24, 2022 Subjective Patient's back pain is controlled leg symptoms markedly improved Physical Exam Physical Exam: Patient is in the chair at the bedside. Is good strength testing. Results & Data ([facility]) Vital Signs (Past 12 Hours) Vital Signs Temp Pulse Resp BP Pulse Ox O2 Del Method 01/26/22 07:34 36.4 C L 51 L 18 149/74 H 94 Room Air
--- NOTE | 2022-01-26 16:35 | Hospitalist Progress Note ---
Date of Service January 26, 2022 Assessment & Plan (1) Neurogenic claudication due to lumbar spinal stenosis: Plan: POD#2 L4-L5, L5-S1 decompression and fusion by Dr. Phipps Activity and wound care orders as per ortho Pain control with bowel regimen PT/OT Monitor H/H for acute blood loss anemia and transfuse blood products PRN EBL 150 cc Acute blood loss anemia Hemoglobin dropped to 13.3 from 15.6 and is contributed by minimal blood loss, surgery itself and dilution due to IV fluid Will monitor CBC and electrolytes Remains medically stable Hemoglobin remained stable without any acute symptoms Likely stable to be discharged (2) Diabetes mellitus, type 2: Plan: Hgb A1c 7.1 12/2021 Glycemic pharmacy following (3) Hypertension: Plan: BP controlled, continue atenolol, chlorthalidone, amlodipine Remains in the upper side but stable (4) Hyperlipidemia: Plan: Continue statin DVT prophylaxis TEDs/SCDs as per spine Ortho Will be discharged home this afternoon from the primary Admission and Anticipated Discharge Date Admission Date: January 24, 2022 Subjective 01/25/2022 The patient was seen and examined in medical floor He has been stable following lumbar surgery Denies any other significant symptoms except back pain He has been ambulating in the room 01/16/2022 The patient was seen and examined in medical floor He has been stable and waiting to be discharged Denies any significant symptoms Review of Systems Review of Systems: All systems reviewed and are unremarkable except as noted below Musculoskeletal: No significant pain at the back and no numbness and or tingling in the extremities Physical Exam Physical Exam: Standing at the bedside without any acute discomfort Constitutional: well developed, well nourished and + obese; not ill appearing Eyes: PERRL, conjunctivae normal, anicteric sclerae ENMT: external ear and nose normal, oropharynx normal Neck: trachea midline, no thyromegaly Respiratory: no respiratory distress Auscultation: lungs clear to auscultation bilaterally Cardiovascular: Rate/Rhythm: regular rate and regular rhythm; not tachycardic Heart Sounds: normal S1 and normal S2; no murmur Extremities: no edema Gastrointestinal (Abdomen): Inspection/Auscultation: normal bowel sounds; abdomen not distended Percussion/Palpation: abdomen soft; abdomen nontender Musculoskeletal: No acute arthritis involving any joint Psychiatric: A+Ox3, euthymic affect Lymphatic: no cervical or axillary lymphadenopathy Results & Data Results & Data ([facility]) Vital Signs (Past 12 Hours) Vital Signs Temp Pulse Resp BP BP Pulse Ox O2 Del Method 01/26/22 14:51 36.4 C L 51 L 18 149/74 H 154/71 H 94 01/26/22 07:34 36.4 C L 51 L 18 149/74 H 94 Room Air Laboratory Results Short CBC 01/26/22 Range/Units 07:47 WBC 13.30 H (4.8-10.8) K/ul Hgb 13.3 L (14.0-18.0) g/dl Hct 39.5 L (40.1-51.0) % Plt Count 194 (130-400) K/uL
--- NOTE | 2022-02-02 15:16 | Discharge Summary ---
Date of Service February 02, 2022 Admission HPI Per Admitting Provider pt has failed conservative treatment without significant improvement of his symptoms. He presents for surgical intervention for lumbar stenosis Admission Exam (Per Admitting) Constitutional well developed Eyes PERRL, conjunctivae normal, anicteric sclerae ENMT external ear and nose normal, oropharynx normal Neck normal visual inspection Respiratory normal respiratory effort Cardiovascular Extremities: normal capillary refill Gastrointestinal (Abdomen) Inspection/Auscultation: abdomen normal to inspection Musculoskeletal Spine: + straight leg raise positive tilt present Extremities: extremities normal to inspection Skin normal turgor Neurologic normal touch/pain/proprioception and moves all extremities Psychiatric A+Ox3, euthymic affect Eye Contact: good eye contact Speech: normal rate/rhythm/volume of speech Discharge Data Consultations 01/24/22 14:28 Consult Hospitalist Routine Procedures Performed Operation Date: 01/24/22 10:05 Actual Procedures p L4-L5, L5-S1 Decompression and Fusion, Spinal Cord Monitoring(Not Applicable) - Edil Phipps DO Hospital Course (1) Neurogenic claudication due to lumbar spinal stenosis: pt was discharged home on POD#2 s/p lumbar fusion L4- S1. He had an uneventful hospital course. He made progress with physical therapy daily. Pain was controlled. Labs were stable. Discharge Instructions ACTIVITY RECOMMENDATIONS: SELF CARE INSTRUCTIONS AFTER THORACIC/LUMBAR FUSIONS 1. You may walk to your tolerance. It is good exercise for your legs and back. Expect some back and intermittent leg aches and pains. 2. You may perform "counter-top" level activities (make a sandwich, naveen with a project, etc.). 3. No bending or lifting of more than 10 pounds or back twisting of any nature (roll like a log when turning in bed). 4. You may ride in a car for 20-30 minutes at a time. No driving until after your first visit with your doctor. 5. Frequent changes of position and restricting sitting to 30 minutes at a time will help limit the amount of back spasms and stiffness you may experience. 6. You may discontinue the use of ambulatory aids (cane, crutches, etc.) once your strength and confidence allow. 7. You may cylinder valve repairer the shower and let water strike your incision when you arrive home at least once daily. Do not take a tub bath, sit in a hot tub or go into a swimming pool until after your first recheck in the office. SPECIAL CARE INSTRUCTIONS: VERY IMPORTANT TO READ AND REVIEW A. Your surgical incision has been closed with a cosmetic suture under the skin that will dissolve in about 6 weeks. In 14 days, you can use a pair of clean scissors and cut the suture that is left outside of the skin at the ends of your incision. 1. The small skin tapes can be removed 7 days after surgery if they have not fallen off by that point. 2. You may keep the wound open to air as much as possible to promote healing after post-op day number 5 unless told otherwise by your doctor. 3. If you think the wound looks like it is becoming infected (redness or worsening drainage) and/or you are experiencing fever, chill or worsening back pain and muscle spasms, contact the office so that we may evaluate you as soon as possible. B. Complications are uncommon, but please contact us if you have any signs or symptoms of: 1. wound infection (fever higher than 102.5 degrees F, redness, separation of wound, drainage, or increasing pain from the incision) 2. blood clots in legs (pain, swelling, redness and warmth in legs) 3. urinary tract infection (fever higher than 102.5 degrees F, burning upon urination or increased frequency of urination) 4. nerve problems (inability to walk on your toes or heels, numbness, loss of bowel or bladder control) 5. any other symptoms that concern you C. Please call the office at if you have any concerns or questions about your operation or recovery. D. No smoking! Smoking drastically decreases the chance of a solid fusion. E. Do not take any anti-inflammatory medications (Indocin, Advil, Motrin, Aspirin, Naprosyn, etc.) as these may inhibit the chance of a solid fusion. Tylenol is okay to take for pain. MANAGING PAIN AFTER SPINAL SURGERY 1. Narcotic medication is intended for short-term use and will be provided for surgical pain. Surgical pain usually lasts for a period of 4-6 weeks. Narcotic medication includes Percocet, Vicodin, Darvocet, Tylenol #3 or Lortab. 2. Longer-term pain is more appropriately treated with non-narcotic medication such as Tylenol ES. 3. Muscle spasm is not appropriately treated with narcotics. Muscle relaxers such as Soma, Flexeril or Skelaxin can be used along with Tylenol ES. 4. Remember that we all live with some "aches and pains". This is not unusual or uncommon after an injury or as we get older. a. Back pain is expected and may include muscle spasms for 4 to 6 weeks after surgery. The pain should gradually improve. If the pain worsens for no apparent reason, please contact the office. b. Intermittent leg pain may also be experienced and should not be concerned about unless it worsens for no apparent reason. If so, please contact the office. 5. We will provide appropriate medication within the normal guidelines of their prescribed use. We will also be very cautious and aware of potential abuse and extended duration of patients' medication needs. a. Pain medications are for your comfort and to assist with sleep and rest so that the tissue can heal. They are not provided in order to return to normal activity and should not be used through the day. To do so or worsening pain at night can result from ongoing tissue damage and development of tolerance to the prescribed medicine. 6. Please allow 2-3 days to process refills. Prescriptions will not be mailed but must be picked up at the office. FOLLOW UP VISIT: Keep your scheduled follow-up appointment. Any questions, please call the office at .
== END 2022-01-26 15:19 | disposition home or self-care (01) | DRG 454 ==
LOC: ASU 08:13 → PACUINP 12:15 → 3N 14:58